=== PATIENT | female | born 1970 | race Caucasian/White ===

== ENCOUNTER 2019-03-15 11:02 | Emergency (ER) | payer MEDICAID ==
[~2019-03-15] VITALS: Ht 154.9 cm; Wt 102.1 kg
[~2019-03-15 11:02] MED LIST: ASPI81TA27 PO; ATOR20TA50 PO; GABA100C9 PO; MET25T PO; SERT-274 PO
[2019-03-15] MEDS ORDERED: SODIUM CHLORIDE 0.9% 1,000 ML IVB ONE (12:29)
[2019-03-15] MEDS ORDERED: PROCHLORPERAZINE EDISYLATE 5 MG/ML 2ML VIAL IV ONE (12:30)
[2019-03-15 13:53] LABS: Basophils # (auto) 0 uL; Eosinophils # (auto) 0.1 uL; Hemoglobin 12.4 g/dL (12.2-16.2); Lymphocytes # (auto) 0.9 uL; Platelet Count (auto) 226 10^3/uL (140-450); White Blood Cell 5.1 10^3/uL (4.4-10.8)
[2019-03-15 13:57] LABS: Basophils % (auto) 0.3 % (0.0-2.0); Eosinophils % (auto) 1.3 % (0.0-7.0); Hematocrit 39.9 % (36.0-46.0); Lymphocytes % (auto) 17.2 % (10.0-50.0); Mean Corpuscular Hemoglobin 24.9 pg (28.0-32.0); Mean Corpuscular Hgb Conc. 31.2 g/dL (32.0-36.0); Monocytes # (auto) 0.6 uL; Neutrophils # (auto) 3.5 uL; Neutrophils % (auto) 69.2 % (37.0-80.0); Nucleated Red Blood Cells % 0.1 %; Red Blood Cells 4.99 10^6/uL (4.0-5.20)
[2019-03-15 14:04] LABS: Red Cell Distribution Width 22.8 % (11.8-14.3)
[2019-03-15 14:08] LABS: Albumin 3.2 g/dL (3.4-5.0); Calcium 8.7 mg/dL (8.5-10.1); Potassium 3.6 mmol/L (3.5-5.1)
[2019-03-15 14:11] LABS: BUN/Creatinine Ratio 14.3
[2019-03-15 14:14] LABS: Bilirubin, Total 0.3 mg/dL (0.2-1.0); Total Protein 6.9 g/dL (6.4-8.2)
[2019-03-15 14:15] LABS: Amylase 44 U/L (25-115); Lipase 179 U/L (73-393)
[2019-03-15 15:00] VITALS: BP 110/74
== END 2019-03-15 15:55 | disposition home or self-care (01) ==
LOC: ER 11:02
DX: K52.9 Noninfective gastroenteritis and colitis, unspecified (principal); E78.5 Hyperlipidemia, unspecified; I10 Essential (primary) hypertension; I48.91 Unspecified atrial fibrillation; Z90.710 Acquired absence of both cervix and uterus; Z88.0 Allergy status to penicillin; Z88.1 Allergy status to other antibiotic agents
CPT/HCPCS: 36415; 74176; 80053; 82150; 83690; 85025; 94761; 96361; 96374; 99284; J0780; J7030

== ENCOUNTER 2021-04-09 16:13 | Inpatient (IN) | payer MEDICAID ==
[~2021-04-09] VITALS: Ht 154.9 cm; Wt 117.6 kg
[~2021-04-09 16:13] MED LIST changes: +ASPI-543 PO; -ASPI81TA27 PO; -SERT-274 PO; +SERT50TA19 PO
[2021-04-09] MEDS ORDERED: PANTOPRAZOLE 40 MG/10 ML VIAL INJ IV STA (16:52)
[2021-04-09 17:17] LABS: Basophils # (auto) 0.1 10 ^3/uL (0-0.2); Basophils % (auto) 1.1 % (0.0-2.0); Eosinophils # (auto) 0.1 10 ^3/uL (0-0.8); Eosinophils % (auto) 1.5 % (0.0-7.0); Hematocrit 40.6 % (36.0-46.0); Hemoglobin 13.4 g/dL (12.2-16.2); Lymphocytes # (auto) 2.8 10 ^3/uL (0.4-5.4); Lymphocytes % (auto) 33.1 % (10.0-50.0); Mean Corpuscular Hemoglobin 29.4 pg (28.0-32.0); Mean Corpuscular Hgb Conc. 33.1 g/dL (32.0-36.0); Mean Corpuscular Volume 88.6 fL (80.0-100.0); Monocytes # (auto) 0.9 10 ^3/uL (0-1.3); Monocytes % (auto) 11.4 % (0.0-12.0); Neutrophils # (auto) 4.4 10 ^3/uL (1.6-8.6); Neutrophils % (auto) 52.9 % (37.0-80.0); Nucleated Red Blood Cells % 0.2 %; Platelet Count (auto) 197 10^3/uL (140-450); Red Blood Cells 4.58 10^6/uL (4.0-5.20); Red Cell Distribution Width 19.7 % (11.8-14.3); White Blood Cell 8.3 10^3/uL (4.4-10.8)
[2021-04-09 17:33] LABS: Albumin 3.7 g/dL (3.4-5.0); BUN/Creatinine Ratio 18.5; Calcium 8.9 mg/dL (8.5-10.1); Potassium 4.3 mmol/L (3.5-5.1)
[2021-04-09 17:42] LABS: Bilirubin, Total 0.3 mg/dL (0.2-1.0); Total Protein 7.3 g/dL (6.4-8.2)
[2021-04-09] MEDS ORDERED: NITROGLYCERIN 0.4 MG SL TAB SL PRN (20:00)
[2021-04-09] MEDS ORDERED: MORPHINE SULF INJ 2 MG/ML SYRINGE 1ML IV PRN (20:00)
[2021-04-09] MEDS: MORPHINE SULF INJ 2 MG/ML SYRINGE 1ML IV PRN (21:04)
[2021-04-09] MEDS: ONDANSETRON HCL 4 MG/2 ML VIAL IV PRN (21:05)
[2021-04-09] MEDS: SODIUM CHLORIDE 0.9% 1,000 ML IV SCH (21:12)
[2021-04-09 21:37] LABS: Amphetamine Screen, Urine NEGATIVE (NEGATIVE); Barbiturate Scree,Urine NEGATIVE (NEGATIVE); Benzodiazephine Screen, Urine NEGATIVE (NEGATIVE); Cannabinoid Screen, Urine POSITIVE (NEGATIVE); Cocaine Screen, Urine NEGATIVE (NEGATIVE); Opiate Scree,Urine NEGATIVE (NEGATIVE); Phencyclidine Screen, Urine NEGATIVE (NEGATIVE)
[2021-04-09 21:58] VITALS: BP 111/78
[2021-04-10] MEDS: ONDANSETRON HCL 4 MG/2 ML VIAL IV PRN ×3 (02:13→18:33)
[2021-04-10] MEDS: MORPHINE SULF INJ 2 MG/ML SYRINGE 1ML IV PRN ×4 (02:13→18:39)
[2021-04-10] MEDS: SODIUM CHLORIDE 0.9% 1,000 ML IV SCH ×4 (04:15→22:23)
[2021-04-10 05:00] VITALS: BP 98/51
[2021-04-10 05:59] LABS: Basophils # (auto) 0.1 10 ^3/uL (0-0.2); Basophils % (auto) 1.1 % (0.0-2.0); Eosinophils # (auto) 0.1 10 ^3/uL (0-0.8); Eosinophils % (auto) 1.5 % (0.0-7.0); Hematocrit 35.7 % (36.0-46.0); Hemoglobin 11.9 g/dL (12.2-16.2); Lymphocytes % (auto) 33.2 % (10.0-50.0); Mean Corpuscular Hemoglobin 29.5 pg (28.0-32.0); Mean Corpuscular Hgb Conc. 33.3 g/dL (32.0-36.0); Mean Corpuscular Volume 88.8 fL (80.0-100.0); Monocytes # (auto) 0.7 10 ^3/uL (0-1.3); Monocytes % (auto) 12.1 % (0.0-12.0); Neutrophils # (auto) 3.1 10 ^3/uL (1.6-8.6); Neutrophils % (auto) 52.1 % (37.0-80.0); Nucleated Red Blood Cells % 0.2 %; Platelet Count (auto) 149 10^3/uL (140-450); Red Blood Cells 4.02 10^6/uL (4.0-5.20); Red Cell Distribution Width 19.8 % (11.8-14.3); White Blood Cell 5.9 10^3/uL (4.4-10.8)
[2021-04-10 06:23] LABS: BUN/Creatinine Ratio 20.3; Potassium 4.4 mmol/L (3.5-5.1)
[2021-04-10 08:00] VITALS: BP 101/59
[2021-04-10 09:25] VITALS: BP 101/59
[2021-04-10 10:48] LABS: Amylase 55 U/L (25-115)
[2021-04-10 10:51] LABS: Lipase 247 U/L (73-393)
[2021-04-10] MEDS ORDERED: LEVOTHYROXINE SODIUM 25 MCG TAB PO ONE (11:00)
[2021-04-10] MEDS: PANTOPRAZOLE 40 MG/10 ML VIAL INJ IV SCH (11:33)
[2021-04-10 12:42] VITALS: BP 118/69
[2021-04-10 16:29] VITALS: BP 111/84
[2021-04-10 22:20] VITALS: BP 118/69
[2021-04-11] MEDS: MORPHINE SULF INJ 2 MG/ML SYRINGE 1ML IV PRN ×3 (02:06→20:30)
[2021-04-11] MEDS: ONDANSETRON HCL 4 MG/2 ML VIAL IV PRN ×4 (02:06→17:55)
[2021-04-11 05:19] VITALS: BP 118/68
[2021-04-11] MEDS: LEVOTHYROXINE SODIUM 25 MCG TAB PO SCH (06:28)
[2021-04-11] MEDS: SODIUM CHLORIDE 0.9% 1,000 ML IV SCH ×3 (06:28→19:10)
[2021-04-11 08:30] VITALS: BP 134/69
[2021-04-11] MEDS: PANTOPRAZOLE 40 MG/10 ML VIAL INJ IV SCH (08:50)
[2021-04-11 12:30] VITALS: BP 117/74
[2021-04-11 17:00] VITALS: BP 133/71
[2021-04-11 22:00] VITALS: BP 127/78
[2021-04-12] MEDS: SODIUM CHLORIDE 0.9% 1,000 ML IV SCH ×4 (01:50→21:50)
[2021-04-12 05:19] VITALS: BP 130/77
[2021-04-12] MEDS: LEVOTHYROXINE SODIUM 25 MCG TAB PO SCH (06:24)
[2021-04-12] MEDS: PANTOPRAZOLE 40 MG/10 ML VIAL INJ IV SCH (07:50)
[2021-04-12] MEDS: ONDANSETRON HCL 4 MG/2 ML VIAL IV PRN ×3 (07:51→17:03)
[2021-04-12 08:20] VITALS: BP 133/76
[2021-04-12] MEDS: MORPHINE SULF INJ 2 MG/ML SYRINGE 1ML IV PRN ×3 (08:46→20:26)
[2021-04-12 12:30] VITALS: BP 126/79
[2021-04-12] MEDS ORDERED: ALUM & MAG HYDROX-SIMETH LIQ(MAALOX) 30 ML PO ONE (15:00)
[2021-04-12 17:00] VITALS: BP 126/59
[2021-04-12 21:55] VITALS: BP 129/67
[2021-04-13] MEDS: SODIUM CHLORIDE 0.9% 1,000 ML IV SCH ×2 (04:30→11:37)
[2021-04-13 05:00] VITALS: BP 114/60
[2021-04-13] MEDS: LEVOTHYROXINE SODIUM 25 MCG TAB PO SCH (06:26)
[2021-04-13] MEDS: ONDANSETRON HCL 4 MG/2 ML VIAL IV PRN (07:30)
[2021-04-13] MEDS: PANTOPRAZOLE 40 MG/10 ML VIAL INJ IV SCH (07:33)
[2021-04-13 08:38] VITALS: BP 111/73
[2021-04-13] MEDS: MORPHINE SULF INJ 2 MG/ML SYRINGE 1ML IV PRN (09:08)
[2021-04-13] MEDS ORDERED: FLORASTOR (S. BOULARDII) 250 MG CAP PO SCH (10:00)
[2021-04-13 12:40] VITALS: BP 128/73
[2021-04-13 16:29] VITALS: BP 110/71
== END 2021-04-13 17:00 | disposition home or self-care (01) | DRG 282 ==
LOC: ER 16:13 → OVERFLOW 19:55 → WEST WING 21:47
PROVIDERS: ADMIT Hospitalist; ATTEND Hospitalist
DX: K85.90 Acute pancreatitis without necrosis or infection, unspecified (principal); E66.01 Morbid (severe) obesity due to excess calories; Z20.822 Contact with and (suspected) exposure to COVID-19; E03.9 Hypothyroidism, unspecified; M79.7 Fibromyalgia; E78.5 Hyperlipidemia, unspecified; F12.90 Cannabis use, unspecified, uncomplicated; I10 Essential (primary) hypertension; I48.91 Unspecified atrial fibrillation; R74.01 Elevation of levels of liver transaminase levels; G89.4 Chronic pain syndrome; K59.00 Constipation, unspecified; Z80.9 Family history of malignant neoplasm, unspecified; Z83.3 Family history of diabetes mellitus; Z90.49 Acquired absence of other specified parts of digestive tract; Z90.710 Acquired absence of both cervix and uterus; Z98.84 Bariatric surgery status; Z90.722 Acquired absence of ovaries, bilateral; Z68.42 Body mass index [BMI] 45.0-49.9, adult; Z88.0 Allergy status to penicillin; Z88.1 Allergy status to other antibiotic agents; Z88.8 Allergy status to other drugs, medicaments and biological substances
CPT/HCPCS: 36415; 74176; 74181; 80048; 80053; 80307; 80320; 82150; 83690; 84443; 84478; 85025; 87426; 96374; C9113; G0378; J2405